=== PATIENT | male | born 1980 | race Caucasian/White ===

== ENCOUNTER 2016-11-06 00:31 | Emergency (ER) | payer OTHER ==
[~2016-11-06] VITALS: Ht 172.7 cm; Wt 106.6 kg
[2016-11-06 00:49] VITALS: BP 144/93
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
--- NOTE | 2016-11-06 01:27 | RADIOLOGY REPORT ---
EXAMINATION: XR SHOULDER, LEFT CLINICAL INFORMATION: Severe left shoulder pain for 2 days after shoveling. COMPARISON: None TECHNIQUE: AP external rotation, Grashey, scapular Y, and axillary views of the left shoulder. FINDINGS: No fracture or dislocation. The left humeral head articulates appropriately with the glenoid. The joint space is maintained. The acromioclavicular joint is intact. IMPRESSION: Normal left shoulder.
[2016-11-06] MEDS ORDERED: IBUPROFEN800 M1 PO (01:36)
[2016-11-06] MEDS ORDERED: CYCLOBENZAPRINE10 M1 PO (01:36)
[2016-11-06] MEDS ORDERED: TRAMADOL HCL50 M1 PO (01:36)
== END 2016-11-06 01:46 ==
LOC: ERH 00:31
DX: S43.402A Unspecified sprain of left shoulder joint, initial encounter (principal); X50.0XXA Overexertion from strenuous movement or load, initial encounter; Y93.H1 Activity, digging, shoveling and raking; Y92.9 Unspecified place or not applicable
CPT/HCPCS: 73030-LT; 96372; J1885; J3360

== ENCOUNTER 2017-09-16 10:26 | Emergency (ER) | payer OTHER ==
[~2017-09-16] VITALS: Ht 172.7 cm; Wt 104.3 kg
[~2017-09-16 10:26] MED LIST: CYCLOBENZAPRINE10 M1 PO; IBUPROFEN800 M1 PO; TRAMADOL HCL50 M1 PO
--- NOTE | 2017-09-16 11:42 | ED UPPER/LOWER EXTREMITY COMPL ---
History of Present Illness General Chief Complaint: Lower Extremity Injury Stated Complaint: LEFT CALF INJURY Source: patient Exam Limitations: no limitations Vital Signs & Intake/Output Vital Signs & Intake/Output ED Intake and Output 09/17 0000 09/16 1200 Intake Total 0 Output Total Balance 0 Intake, Oral 0 Patient 230 lb Weight Allergies Coded Allergies: No Known Allergies (11/06/16) Reconcile Medications Cyclobenzaprine HCl 10 MG TABLET 1 TAB PO BID PRN SPASM DO NOT DRIVE WITH THIS MEDICATION Hydrocodone/Acetaminophen ([place] 5-325 Tablet) 5 MG-325 MG TABLET 1 TAB PO Q4- 6 PRN PRN PAIN Ibuprofen 800 MG TABLET 1 TAB PO TID PRN pain Ibuprofen 800 MG TABLET 1 TAB PO TID PAIN Tramadol HCl 50 MG TABLET 1 TAB PO BIDP PRN BREAKTHROUGH PAIN Triage Note: PT STATES THAT HE FELL ON STEPS 2 DAYS AGO AND HEARD SOMETHING POP IN HIS L CALF, PT AMBULATED WITH CRUTCHES AND NOTED WITH ORTHO BOOT ON, PT HAS NOT BEEN SEEN FOR THIS Triage Nurses Notes Reviewed? yes Onset: Abrupt Duration: day(s): (2), constant, continues in ED, getting worse Timing: single episode today Severity: mild, moderate Severity Numbers: 7 Pain/Injury Location: Left: Leg. Method of Injury: fall No Modifying Factors: none Associated Symptoms: swelling HPI: 36-year-old male with no past medical history presents for evaluation of pain and swelling in his left lower cantu. Patient states that he was walking down stairs 2 days ago when he accidentally slipped and fell down 2 or 3 stairs. He states that he hit his leg on the ground. He reports pain and swelling in the left calf left ankle and left knee. The pain is worse with movement however he is able to walk. He had a orthopedic boot and crutches at home which she has been using. He is also taking Tylenol without any improvement. He denies any numbness or tingling no changes in color of the skin. He feels like the swelling has improved since it first started. No chest pain shortness of breath hip pain back pain neck pain. There is no head strike or loss of consciousness. He does not take blood thinners. Past History Travel History Traveled to [place] past 21 day No Medical History Any Pertinent Medical History? 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 No Review of Systems Review of Systems Constitutional: Reports: no symptoms. EENTM: Reports: no symptoms. Respiratory: Reports: no symptoms. Cardiovascular: Reports: no symptoms. Gastrointestinal/Abdominal: Reports: no symptoms. Genitourinary: Reports: no symptoms. Musculoskeletal: Reports: see HPI, joint pain, joint swelling, muscle pain, muscle stiffness. Skin: Reports: no symptoms. Neurological/Psychological: Reports: no symptoms. Hematologic/Endocrine: Reports: no symptoms. Immunological: Reports: no symptoms. All Other Systems: Reviewed and Negative Physical Exam Physical Exam General Appearance: well developed/nourished, no apparent distress, alert, awake Head: atraumatic, normal appearance Eyes: Bilateral: normal appearance, PERRL, EOMI. Ears, Nose, Throat: hearing grossly normal Neck: normal inspection, supple, full range of motion, no midline tenderness Cardiovascular/Respiratory: no respiratory distress Peripheral Pulses: 2+ tibialis posterior (R), 2+ tibialis posterior (L), 2+ dorsalis pedis (R), 2+ dorsalis pedis (L) Back: normal inspection, normal range of motion, no vertebral tenderness Leg Left: normal range of motion, THE LEFT LOWER EXTREMITY FROM THE KNEE DOWN IS DIFFUSELY SWOLLEN. tHE CALF IS TENDER TO PALPATION. nO BRUISING OR REDNESS. tHE SKIN IS NOT TIGHT. nORMAL SKIN COLOR. nO LACERATIONS. tHERE IS A PALPABLE POPLITEAL PULSE AND DORSALIS PEDIS AND POSTERIOR TIBIAL PULSES ARE 2+ BILATERALLY. fULL Leg Right: normal range of motion, normal inspection Hip Left: normal range of motion, normal inspection Hip Right: normal range of motion, normal inspection Knee Left: normal range of motion, swelling, tenderness, LEFT KNEE MILDLY DIFFUSELY SWOLLEN, THE LEFT KNEE IS SLIGHTLY SWOLLEN. fULL RANGE OF MOTION IS INTACT WITH PAIN. nO REDNESS OR BRUISING CREPITUS Knee Right: normal range of motion, normal inspection Foot Left: normal range of motion, soft tissue tenderness, swelling, FULL RANGE OF MOTION OF THE FOOT AND ANKLE INTACT. pAIN WITH PALPATION OF THE LATERAL MALLEOLUS. nO BRUISING. nEUROVASCULAR SUPPLY IS INTACT Foot Right: normal inspection, normal range of motion Neurologic/Tendon: normal sensation, normal motor functions, normal tendon functions, responds to pain, no evidence tendon injury, no pulse deficit Skin: intact, normal color, warm/dry Progress Differential Diagnosis: compartment syndrome, contusion, dislocation, DVT, fracture, gout, sprain, tendon injury Plan of Care: Orders Procedure Date/time Status US-DUPLEX VENOUS EXTREM UNI 09/16 1322 Active Patient seen and evaluated. He has pain to palpation of the calf. No numbness or tingling. Skin color is appropriate. Dorsalis pedis pulse is 2+. Consider compartment syndrome considered popliteal artery dissection however his pain is not out of proportion. X-rays are negative. Advised patient he should have an ultrasound to rule out DVT/arterial injury however he does not want to wait for this. Discussed with patient possible risks including permit disability and . Patient understands these risks. GIVEN outpatient slip for an ultrasound. He already has a boot and crutches that he's been using. Advised to continue to do this. Restless elevation compression. Tylenol ibuprofen for pain and workup for severe pain only discussed return precautions return as soon as possible for ultrasound. Follow-up with orthopedics/primary care doctor. Patient is nontoxic appearing agrees to plan. Diagnostic Imaging: Viewed by Me: Radiology Read. Discussed w/RAD: Radiology Read. Radiology Impression: PATIENT: JOSE HACKETT PRESENT AGE: 36 PATIENT ACCOUNT NO: [id number] : 81 LOCATION: [facility] ORDERING PHYSICIAN: Agapito ZUNIGA SERVICE DATE: 09/16/17115 EXAM TYPE: RAD - XRY-ANKLE 3 OR MORE VIEWS L; XRY-KNEE COMPLETE LEFT 3 VIEWS OF THE LEFT ANKLE AND 4 VIEWS OF LEFT KNEE CLINICAL INFORMATION: Knee and ankle pain after fall COMPARISON: None available. FINDINGS: Left ankle: There is no fracture. The ankle mortise is intact. No ankle joint effusion. Left knee: There is no fracture. Bony articulations are maintained. No knee joint effusion. Flabella is incidentally noted. The bony articulations are maintained. No radiopaque foreign body. Small soft tissue calcification anterior to the mid tibia. IMPRESSION: No acute osseous findings involving the left ankle or the left knee. DICTATED BY: Pete Avalos MD DATE/TIME DICTATED:09/16/171299 MOLDING PLASTERER:YASMINE DATE/TIME TRANSCRIBED:09/16/171299 CONFIDENTIAL, DO NOT COPY WITHOUT APPROPRIATE AUTHORIZATION., PATIENT: JOSE HACKETT PRESENT AGE: 36 PATIENT ACCOUNT NO: [id number] : 81 LOCATION: [facility] ORDERING PHYSICIAN: Agapito ZUNIGA SERVICE DATE: 09/16/17 EXAM TYPE: RAD - XRY-ANKLE 3 OR MORE VIEWS L; XRY-KNEE COMPLETE LEFT 3 VIEWS OF THE LEFT ANKLE AND 4 VIEWS OF LEFT KNEE CLINICAL INFORMATION: Knee and ankle pain after fall COMPARISON: None available. FINDINGS: Left ankle: There is no fracture. The ankle mortise is intact. No ankle joint effusion. Left knee: There is no fracture. Bony articulations are maintained. No knee joint effusion. Flabella is incidentally noted. The bony articulations are maintained. No radiopaque foreign body. Small soft tissue calcification anterior to the mid tibia. IMPRESSION: No acute osseous findings involving the left ankle or the left knee. DICTATED BY: Pete Avalos MD DATE/TIME DICTATED:09/16/171299 MOLDING PLASTERER:YASMINE DATE/TIME TRANSCRIBED:09/16/171299 CONFIDENTIAL, DO NOT COPY WITHOUT APPROPRIATE AUTHORIZATION. Departure Departure Disposition: HOME OR SELF CARE Condition: Stable Clinical Impression Primary Impression: Pain of left lower extremity Referrals: Rogers Nelson MD (PCP/Family) Additional Instructions: Rest, avoid excessive weightbearing and walking. Keep the leg elevated. Ibuprofen 800 mg every 8 hours with food as needed for pain. [place] for severe pain only this may cause drowsiness. Apply ice for 15-20 minutes every few hours. It is recommended that you stay for an ultrasound to rule out a blood clot. An undiagnosed blood clot to travel to your lung and lead to or permanent disability. Complete outpatient ultrasound as soon as possible. Monitor symptoms closely. If you have shortness of breath, chest pain, coughing up blood, numbness, tingling, worsening pain, worsening swelling, changes in the color of your skin or any other concerns return to the emergency Department immediately. Make a follow-up with YOUR primary care doctor for this week. Departure Forms: Customer Survey General Discharge Information Prescriptions: Current Visit Scripts Hydrocodone/Acetaminophen ([place] 5-325 Tablet) 1 TAB PO Q4-6 PRN PRN PAIN #10 TAB Ibuprofen 1 TAB PO TID PRN pain #30 TAB
--- NOTE | 2017-09-16 13:07 | RADIOLOGY REPORT ---
3 VIEWS OF THE LEFT ANKLE AND 4 VIEWS OF LEFT KNEE CLINICAL INFORMATION: Knee and ankle pain after fall COMPARISON: None available. FINDINGS: Left ankle: There is no fracture. The ankle mortise is intact. No ankle joint effusion. Left knee: There is no fracture. Bony articulations are maintained. No knee joint effusion. Flabella is incidentally noted. The bony articulations are maintained. No radiopaque foreign body. Small soft tissue calcification anterior to the mid tibia. IMPRESSION: No acute osseous findings involving the left ankle or the left knee.
[2017-09-16 13:20] VITALS: BP 167/88
[2017-09-16] MEDS ORDERED: NORCO 5-325 TA1 EACH PO (14:15)
[2017-09-16] MEDS ORDERED: IBUPROFEN800 M1 PO (14:16)
== END 2017-09-16 14:25 ==
LOC: ERH 10:26
DX: M79.662 Pain in left lower leg (principal); M25.472 Effusion, left ankle
CPT/HCPCS: 73562-LT; 73610-LT; 96372; J1885

== ENCOUNTER 2017-09-18 03:03 | Emergency (ER) | payer OTHER ==
[~2017-09-18] VITALS: Ht 172.7 cm; Wt 104.3 kg
[~2017-09-18 03:03] MED LIST changes: +NORCO 5-325 TA1 EACH PO
[2017-09-18 03:17] VITALS: BP 133/86
--- NOTE | 2017-09-18 03:27 | ED ANKLE/FOOT INJURY COMPLAINT ---
History of Present Illness General Chief Complaint: Lower Extremity Problems Stated Complaint: LEG PAIN Source: patient, old records Exam Limitations: no limitations Vital Signs & Intake/Output Vital Signs & Intake/Output Vital Signs Date Time Temp Pulse Resp B/P B/P Pulse O2 O2 Flow FiO2 Mean Ox Delivery Rate 09/18 0317 97.4 97 20 133/86 97 Allergies Coded Allergies: No Known Allergies (11/06/16) Reconcile Medications Cyclobenzaprine HCl 10 MG TABLET 1 TAB PO BID PRN SPASM DO NOT DRIVE WITH THIS MEDICATION Cyclobenzaprine HCl 10 MG TABLET 1 TAB PO TID PRN SPASM DO NOT DRIVE WITH THIS MEDICATION Hydrocodone/Acetaminophen ([place] 5-325 Tablet) 5 MG-325 MG TABLET 1 TAB PO Q4- 6 PRN PRN PAIN Ibuprofen 800 MG TABLET 1 TAB PO TID PRN pain Ibuprofen 800 MG TABLET 1 TAB PO TID PAIN Tramadol HCl 50 MG TABLET 1 TAB PO BIDP PRN BREAKTHROUGH PAIN Triage Note: 36YO MAL ETO TRIAGE W/CO L CALF,ANKLE PAIN SP INJURY THAT OCCURRED ON . WEARING BOOT. STATES HE WAS SEEN HERE FRI,HAD XR AND US. TONITE STATES "MORE SWOLLEN AND PAINFUL Triage Nurses Notes Reviewed? yes Occurred: 2 DAYS Severity: moderate Pain/Injury Location: Left: Foot, Ankle, Other (LEG). Method of Injury: SPRAIN No Modifying Factors: none Associated Symptoms: swelling, stiffness HPI: This is a 36-year-old male who presents to the ER for chief complaint of what worsening left calf pain, ankle pain and swelling after spraining his ankle 2 days ago. He was seen here had an x-ray and an ultrasound done. He's been nonweightbearing using a walking boot and crutches. He states that he's been using the ibuprofen, elevating it home and taking the Vicodin at night. Patient 's pain got worse tonight as well as the swelling and he wanted to make sure everything was okay.. Patient states that most the pain is in the calf. Past History Travel History Traveled to [place] past 21 day No Medical History Any Pertinent Medical History? 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 No Review of Systems Review of Systems Constitutional: Denies: chills, fever. EENTM: Reports: no symptoms. Respiratory: Denies: cough, short of breath. Cardiovascular: Denies: chest pain. GI: Reports: no symptoms. Genitourinary: Reports: no symptoms. Musculoskeletal: Reports: muscle pain, muscle stiffness. Skin: Reports: no symptoms. Neurological/Psychological: Reports: no symptoms. Hematologic/Endocrine: Denies: bruising, bleeding. Immunologic/Allergic: Reports: no symptoms. All Other Systems: Reviewed and Negative Physical Exam Physical Exam General Appearance: well developed/nourished, alert, awake, anxious, mild distress, moderate distress, obese Head: atraumatic, normal appearance Eyes: Bilateral: normal appearance. Ears, Nose, Throat: hearing grossly normal Neck: normal inspection, supple Cardiovascular/Respiratory: regular rate/rhythm Back: normal inspection Leg/Knee/Thigh Left: PAINFUL CALF Leg/Knee/Thigh Right: normal range of motion, normal inspection Ankle Left: soft tissue tenderness, swelling Ankle Right: normal inspection, normal range of motion Foot Left: soft tissue tenderness, swelling, 2+ DP PULSE Foot Right: normal inspection, normal range of motion Neuro/Vascular: normal motor function, normal sensation Tendon: normal tendon function Psychiatric: awake, alert, oriented x 3 Skin: intact, normal color, warm/dry Comments: CALF SOFT, COMPRESSIBLE LINARES TEST NEGATIVE WITH GOOD PLANTARFLEXION Progress Differential Diagnosis: sprain, compartmental syndrome, GASTROCNEMIUS TEAR, ACHILLES TENDON INJURY Plan of Care: Current Medications Sig/Marjorie Start time Last Medication Dose Stop Time Status Admin Ketorolac 60 MG ONCE ONE 09/18 344 UNVr Tromethamine 09/18 345 (Toradol) Oxycodone/ 1 TAB ONCE ONE 09/18 344 UNVr Acetaminophen 09/18 345 (Percocet) Departure Departure Disposition: HOME OR SELF CARE Condition: Stable Clinical Impression Primary Impression: Gastrocnemius strain, left Referrals: Rogers Nelson MD (PCP/Family) Additional Instructions: Continue with the ibuprofen and Vicodin. Take the Flexeril as directed. Please follow-up with orthopedic doctor through your insurance. Ice, rest, elevate the leg as much as possible and maintain nonweightbearing status. Departure Forms: Customer Survey General Discharge Information Prescriptions: Current Visit Scripts Cyclobenzaprine HCl 1 TAB PO TID PRN SPASM #[address] WITH THIS MEDICATION
[2017-09-18] MEDS ORDERED: CYCLOBENZAPRINE10 M1 PO (03:42)
== END 2017-09-18 03:20 ==
LOC: ERH 03:03
DX: S86.112A Strain of other muscle(s) and tendon(s) of posterior muscle group at lower leg level, left leg, initial encounter (principal); X58.XXXA Exposure to other specified factors, initial encounter; Y93.9 Activity, unspecified; Y92.9 Unspecified place or not applicable
CPT/HCPCS: 96372; J1885